=== PATIENT | female | born 1995 | race Caucasian/White ===

== ENCOUNTER 2017-06-03 11:45 | Outpatient (CLI) | payer OTHER ==
--- NOTE | 2017-06-03 12:39 | Diagnostic Imaging Report ---
[facility] [id number] [facility] [address] [place], [place]. [id number] Report Submission Date: Jun 03, 2017 12:37:02 PM SURFACE MOUNT TECHNOLOGY OPERATOR Patient Study Name: CAROLE AGUIRRE Date: Jun 03, 2017 12:05:30 PM SURFACE MOUNT TECHNOLOGY OPERATOR Modality Type: CT\SR Gender: F Description: CT CHEST W/ CONTRAST : 89 Institution: [facility] Physician: MELISSA MOSQUEDA Examination: CT chest History: Dyspnea Comparison exams: None available Technique: CT chest with contrast protocol Findings: Lung pleura, parenchyma, and pulmonary vascularity are without irregularity. Mild dependent atelectasis. No effusion or posterior pleural thickening. Anterior mediastinum and nelly are without gross mass or pathologic adenopathy. Thoracic aorta without evidence for aneurysm or peripheral atherosclerotic disease. Pulmonary vasculature without gross abnormality given exam technique Cardiac silhouette not enlarged. No pericardial effusion. Lower neck structures, upper abdominal organs, and osseous structures are without gross abnormality. Slight thoracic curvature to the right. Impression: No acute parenchymal process. No effusion. Electronically signed on Jun 03, 2017 12:37:02 PM SURFACE MOUNT TECHNOLOGY OPERATOR by: Pancho GURROLA
== END 2017-06-03 11:46 ==
LOC: RAD 11:45
PROVIDERS: ATTEND Family Medicine
DX: R06.09 Other forms of dyspnea (principal)
CPT/HCPCS: 71260; Q9967

== ENCOUNTER 2017-10-14 16:29 | Outpatient (CLI) | payer OTHER ==
[2017-10-14 17:06] LABS: BASOPHILS % 0.3 (0.0-1.5); EOSINOPHILS % 0.5 % (0.0-6.8); MEAN CORPUSCULAR HEMOGLOBIN 30.4 pg (28.0-34.0); MEAN CORPUSCULAR VOLUME 89.5 fl (80.0-100.0); MONOCYTES % 4.1 % (0.0-11.0); NEUTROPHILS # 10.9 # k/uL (1.4-7.7)
== END 2017-10-14 16:30 ==
LOC: LAB 16:29
PROVIDERS: ATTEND Physician Assistant
DX: R50.9 Fever, unspecified (principal)
CPT/HCPCS: 36415; 85025; 86308

== ENCOUNTER 2018-01-28 08:47 | Outpatient (CLI) | payer OTHER | END 2018-01-28 08:50 | LOC: LAB 08:47 | PROVIDERS: ATTEND Nurse Practitioner Family | DX: F41.9 Anxiety disorder, unspecified (principal) | CPT/HCPCS: 36415; 84439; 84443; 84481 ==